=== PATIENT | male | born 1965 | race Caucasian/White ===

== ENCOUNTER 2017-01-05 22:33 | Inpatient (IN) | payer MEDICAID ==
[2017-01-05 23:34] LABS: % IMMATURE GRANULYOCYTES 2.6 % (0.0-1.1); ABSOLUTE IMMATURE GRANULOCYTES 0.28 10^3/uL (0.00-0.10); ADD DIFF? NO; ADD MORPH? NO; ADD SCAN? NO; ATYPICAL LYMPHOCYTE FLAG 10 (0-99); FRAGMENT RBC FLAG 0 (0-99); HEMATOCRIT 28.5 % (40.0-51.0); HEMOGLOBIN 9.5 g/dL (13.7-17.5); LEFT SHIFT FLG 20 (0-99); LIPEMIA HEMOLYSIS FLAG 80 (0-99); MEAN CELL HEMOGLOBIN 27.8 pg (27.9-34.1); MEAN CELL HEMOGLOBIN CONCENTR. 33.3 g/dL (32.4-36.7); MEAN CELL VOLUME 83.3 fL (81.5-99.8); MEAN PLATELET VOLUME 8.9 fL (8.7-11.7); PLATELET CLUMPS FLAG 0 (0-99); PLATELET COUNT 506 10^3/uL (150-400); RED BLOOD CELL COUNT 3.42 10^6/uL (4.40-6.38); RED CELL DISTRIBUTION WIDTH 14.6 % (11.5-15.2)
[2017-01-05 23:48] LABS: ALANINE AMINOTRANSFERASE 23 IU/L (21-72); ALBUMIN 3.4 g/dL (3.5-5.0); ALKALINE PHOSPHATASE 313 IU/L (38-126); ANION GAP 14 mEq/L (8-16); ASPARTATE AMINOTRANSFERASE 36 IU/L (17-59); BILIRUBIN,TOTAL 0.5 mg/dL (0.1-1.4); BILIRUBIN-CONJUGATED 0.5 mg/dL (0.0-0.5); CALCIUM 8.7 mg/dL (8.5-10.4); CARBON DIOXIDE 21 mEq/l (22-31); CHLORIDE 104 mEq/L (97-110); CREATININE 0.8 mg/dL (0.7-1.3); GLOMERULAR FILTRATION RATE > 60; GLUCOSE 95 mg/dL (70-100); POTASSIUM 4.1 mEq/L (3.5-5.2); SODIUM 139 mEq/L (134-144); TOTAL PROTEIN 6.4 g/dL (6.3-8.2)
[2017-01-06 01:21] LABS: COLOR YELLOW; LEUKOCYTE ESTERASE,URINE NEGATIVE (NEGATIVE); NITRITE,URINE NEGATIVE (NEGATIVE)
[2017-01-06] MEDS ORDERED: IOPAMIDOL (ISOVUE-300) 100 ML BTL ONE (01:37)
[2017-01-06 01:41] LABS: MUCUS 1+ /lpf (NONE-1+); RBC,URINE NONE SEEN /hpf (0-3); WBC,URINE 0-1 /hpf (0-3)
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
[2017-01-06] MEDS ORDERED: ONDANSETRON 4 MG/2 ML VIAL IVP ONE (02:38)
[2017-01-06] MEDS ORDERED: ONDANSETRON DISINTEGRATING 4 MG TAB PO PRN (04:33)
[2017-01-06] MEDS ORDERED: HYDROmorphONE/DILAUDID 1 MG/ML INJ IVP PRN ×2 (04:34→04:58)
[2017-01-06] MEDS: NS 1,000 ML IV SCH ×2 (05:55→14:07)
[2017-01-06] MEDS: DEXAMETHASONE 4 MG/ML VIAL IVP SCH ×4 (05:56→23:55)
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
[2017-01-06] MEDS: morphINE SR 15 MG TAB PO SCH ×2 (09:16→20:14)
[2017-01-06] MEDS: ENOXAPARIN 40 MG/0.4 ML SYR SC SCH (09:17)
[2017-01-06] MEDS: HYDROmorphONE/DILAUDID 1 MG/ML INJ IVP PRN ×2 (09:44→14:08)
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
[2017-01-06] MEDS: ONDANSETRON 4 MG/2 ML VIAL IVP PRN ×2 (11:50→16:40)
[2017-01-06] MEDS: LORazepam 0.5 MG TAB PO PRN ×2 (12:05→23:55)
[2017-01-06] MEDS ORDERED: BISACODYL 10 MG SUPP PR PRN (13:46)
[2017-01-06] MEDS ORDERED: LACTULOSE 20 GM/30 ML UDCUP PO PRN (13:46)
[2017-01-06] MEDS ORDERED: MAGNESIUM HYDROXIDE 30 ML UDCUP PO PRN (13:46)
[2017-01-06] MEDS: NICOTINE 21 MG/24 HR PATCH TD SCH (14:09)
--- NOTE | 2017-01-06 14:21 | HOSPPROG ---
Hospitalist Progress Note Assessment/Plan: Rectal and bladder tumors with extensive metastatic disease to bone, lung - query prostate primary with sclerotic bone lesions vs bladder primary. Need tissue diagnosis followed by oncology consult. -check PSA. Discussed with urology. Even if PSA elevated, he would still pursue biopsy of bone lesion rather than prostate biopsy -bone biopsy in am via IR -check PT/INR -npo at midnight -oncology consult requested, will see tomorrow Hydronephrosis - Cr normal. PVR's normal. -cont bladder scans LE weakness - MRI pending to evaluate for cord compression Acute / chronic pain secondary to tumor burden / osseous mets to spine - cont dexamethasone, IV dilaudid, add long acting oral morphine Anemia - suspect secondary to malignancy, no transfusion needs Tobacco abuse - nicoderm patch Malnutrition - dietary consult, supplements with meals Full code DVT PPLX - Lovenox Dispo - cont inpt, pt homeless, CM consult Subjective: Pt c/o pain, LE weakness, difficulty urinating and having BM's. No fever. Objective: Vital Signs Temp Pulse Resp BP Pulse Ox 36.8 C 68 20 121/75 H 96 01/06/17 11:50 01/06/17 11:50 01/06/17 11:50 01/06/17 11:50 01/06/17 11:50 01/05/17 01/06/17 01/07/17 05:59 05:59 05:59 Intake Total 525 120 Output Total 300 260 Balance 225 -140 - Physical Exam Constitutional: no apparent distress Eyes: PERRL Ears, Nose, Mouth, Throat: moist mucous membranes Cardiovascular: regular rate and rhythym Respiratory: no respiratory distress Gastrointestinal: normoactive bowel sounds, soft, non-tender abdomen Skin: warm Musculoskeletal: full muscle strength Neurologic: AAOx3 Psychiatric: interacting appropriately ICD10 Worksheet Patient Problems: Problems Problem Status Onset Abdominal pain Acute Anemia Acute Bladder cancer metastasized to bone Acute Homeless Acute Low back pain radiating to both legs Acute
[2017-01-06] MEDS: POLYETHYLENE GLYCOL 3350 17 GM PKT PO PRN (14:25)
[2017-01-06] MEDS ORDERED: PROMETHAZINE HCL 25 MG/ML INJ IVP PRN (17:07)
[2017-01-06] MEDS ORDERED: PROMETHAZINE HCL 25 MG TAB PO PRN (17:07)
--- NOTE | 2017-01-06 17:34 | CPEKG ---
Heart Rate: 135 RR Interval: 444 QRSD Interval: 78 QT Interval: 296 QTC Interval: 444 QRS [place]: 72 T Wave [place]: 10 EKG Severity - ABNORMAL ECG - EKG Impression: ATRIAL FIBRILLATION, V-RATE 103-156 EKG Impression: LEFT VENTRICULAR HYPERTROPHY Electronically Signed By: Joanne Rosales 07-Jan-2017 06:36:49
[2017-01-06] MEDS ORDERED: ASPIRIN 325 MG TAB PO ONE (17:52)
[2017-01-06] MEDS ORDERED: IOPAMIDOL (ISOVUE 370) 100 ML BTL IV ONE (17:57)
[2017-01-06] MEDS ORDERED: DILTIAZEM 25 MG/5 ML VIAL IVP ONE ×2 (18:00→19:45)
[2017-01-06] MEDS ORDERED: DILTIAZEM 125 MG in D5W 125 ML IV SCH (18:00)
[2017-01-06] MEDS ORDERED: DILTIAZEM 30 MG TAB PO SCH (18:00)
[2017-01-06] MEDS: DILTIAZEM 30 MG TAB PO SCH ×2 (18:05→23:55)
[2017-01-06 18:48] LABS: TROPONIN I < 0.012 ng/mL (0.000-0.034)
--- NOTE | 2017-01-06 19:37 | PDCONSULT ---
Remote Advisor Note: Chart reviewed and case discussed with Dr. Ugarte. Full consult to follow. Widely metastatic disease with PSA > 2000 suggests prostate cancer. Given severity of the disease recommend medical oncology consultation. If tissue diagnosis needed recommend biopsy of metastatic site. Consider radiation oncology consult for palliative XRT ? Bladder mass on CT--> outpatient cystoscopy Bilateral hydronephrosis with normal creatinine, likely due to prostate cancer. Observe for now as no signs of infection or renal insufficiency. No surgical intervention for prostate cancer or hydronephrosis indicated at this time
[2017-01-06] MEDS: SENNOSIDES/DOCUSATE SODIUM TAB PO SCH (20:24)
[2017-01-07 04:03] LABS: HEMATOCRIT 30.9 % (40.0-51.0); MEAN CELL HEMOGLOBIN 27.5 pg (27.9-34.1); MEAN CELL HEMOGLOBIN CONCENTR. 32.4 g/dL (32.4-36.7); MEAN CELL VOLUME 85.1 fL (81.5-99.8); RED BLOOD CELL COUNT 3.63 10^6/uL (4.40-6.38); RED CELL DISTRIBUTION WIDTH 14.6 % (11.5-15.2)
[2017-01-07 04:11] LABS: INR 1.28 (0.83-1.16)
[2017-01-07 04:22] LABS: ANION GAP 12 mEq/L (8-16); CALCIUM 8.7 mg/dL (8.5-10.4); CARBON DIOXIDE 24 mEq/l (22-31); CHLORIDE 104 mEq/L (97-110); CREATININE 0.9 mg/dL (0.7-1.3); GLOMERULAR FILTRATION RATE > 60; GLUCOSE 145 mg/dL (70-100); POTASSIUM 4.8 mEq/L (3.5-5.2); SODIUM 140 mEq/L (134-144)
[2017-01-07] MEDS: DEXAMETHASONE 4 MG/ML VIAL IVP SCH ×3 (06:27→17:39)
[2017-01-07] MEDS: DILTIAZEM 30 MG TAB PO SCH ×4 (06:29→18:33)
[2017-01-07] MEDS: morphINE SR 15 MG TAB PO SCH ×2 (08:44→20:27)
[2017-01-07] MEDS: SENNOSIDES/DOCUSATE SODIUM TAB PO SCH ×2 (08:44→20:27)
[2017-01-07] MEDS: NICOTINE 21 MG/24 HR PATCH TD SCH (08:44)
--- NOTE | 2017-01-07 08:48 | HOSPPROG ---
Hospitalist Progress Note Assessment/Plan: Presumed metastatic prostate cancer - PSA >2000 with sclerotic bone lesions, lung mets and bladder tumor. Pt adamantly refuses bone or other tissue biopsy. -oncology consult appreciated, will start anti-androgen therapy -appreciate urology input, outpt cystoscopy recommended Hydronephrosis - Cr normal. PVR's normal. -cont bladder scans, monitor Cr A fib with RVR - New onset, converted to sinus after oral dilt. Chads-vasc 0. TSH nl. Trops neg x2. Echo pending. -cont po dilt, daily ASA LE weakness - MRI pending to evaluate for cord compression. May be a candidate for palliative radiation if cord compression seen. Acute / chronic pain secondary to tumor burden / osseous mets to spine - cont dexamethasone, IV dilaudid, and long acting oral morphine Anemia - suspect secondary to malignancy, no transfusion needs Tobacco abuse - nicoderm patch Malnutrition - dietary consult, supplements with meals Full code DVT PPLX - Lovenox Dispo - cont inpt, pt homeless, CM consult. Pt wishes to return to [place] where he has family. Subjective: Pt feels better. Had a good night sleep. Pain improved. No CP, SOB or palpitations. Converted to NSR overnight. Objective: Vital Signs Temp Pulse Resp BP Pulse Ox 36.7 C 70 20 124/83 H 97 01/07/17 08:00 01/07/17 08:00 01/07/17 08:00 01/07/17 08:00 01/07/17 08:00 Laboratory Results 01/07/17 03:41 01/07/17 03:41 01/06/17 01/07/17 01/08/17 05:59 05:59 05:59 Intake Total 525 2633 250 Output Total 300 1035 525 Balance 225 1598 -275 PT 16.0 SEC (12.0-15.0) H 01/07/17 03:41 INR 1.28 (0.83-1.16) H 01/07/17 03:41 - Physical Exam Constitutional: cachectic Eyes: PERRL Ears, Nose, Mouth, Throat: moist mucous membranes Cardiovascular: regular rate and rhythym Respiratory: no respiratory distress, clear to auscultation Gastrointestinal: normoactive bowel sounds, soft, non-tender abdomen Skin: warm Musculoskeletal: other (LE weakness b/l) Neurologic: AAOx3 Psychiatric: interacting appropriately ICD10 Worksheet Patient Problems: Problems Problem Status Onset Abdominal pain Acute Anemia Acute Bladder cancer metastasized to bone Acute Homeless Acute Low back pain radiating to both legs Acute Prostate cancer metastatic to bone Acute Prostate cancer metastatic to lung Acute
[2017-01-07] MEDS: ENOXAPARIN 40 MG/0.4 ML SYR SC SCH (09:07)
--- NOTE | 2017-01-07 09:27 | CPEKG ---
Heart Rate: 63 RR Interval: 952 P-R Interval: 156 QRSD Interval: 92 QT Interval: 404 QTC Interval: 414 P [place]: 50 QRS [place]: 77 T Wave [place]: 40 EKG Severity - ABNORMAL ECG - EKG Impression: SINUS RHYTHM EKG Impression: LEFT VENTRICULAR HYPERTROPHY Electronically Signed By: Joanne Rosales 07-Jan-2017 16:29:17
--- NOTE | 2017-01-07 09:44 | ECHO ---
[id number] + + [address] : : [place] [address] : : [phone] + + Adult Echocardiographic Report + --+ :Name: GERARD BAUTISTA NStudy Date: 01/07/2017 08:02 AM BP: 149/92 mmHg : : Hospital Admission Number: [id number] Location: 2 08: :: 1965 Gender: Male Height: 73 in : :Age: 51 yrs Race: WH Weight: 138 lb : :Reason For Study: new onset afib : : BSA: 1.8 meters2 : :History: new onset afib : + --+ MMode/2D Measurements & Calculations IVSd: 0.91 cm RVDd: 3.7 cm FS: 35.2 % Ao root diam: LVPWd: 0.86 cm LVIDd: 4.5 cm EDV(Teich): 2.8 cm LVIDs: 2.9 cm 93.4 ml ESV(Teich): 33.0 ml EF(Teich): 64.7 % LVLd ap4: 9.9 cm SV(MOD-sp4): EDV(MOD-sp4): 115.0 ml 165.0 ml LVLs ap4: 7.6 cm ESV(MOD-sp4): 50.0 ml EF(MOD-sp4): 69.7 % Normal Measurement Values: + + :LVIDd (3.5-5.7cm) IVSd (0.6-1.1cm) LVPWd (0.6-1.1cm) Aortic Root (2.0-3.7cm)Left Atrium (1.5-4.0cm): :LV Vol(d) (76-115ml) LV Vol(s) (29-48ml) Ejec Fraction (50-65%)PV Idris (0.6- 1.2m/s) TV Idris (0.4-1.0m/s) : :MV E Idris (0.8-1.0m/s)MV A Idris (0.3-1.0m/s)LVOT Idris (0.7-1.2m/s) Asc Ao Idris ( 0.9-1.8m/s) : + + Doppler Measurements & Calculations MV E max idris: Ao V2 max: LV V1 max: PA V2 max: 90.8 cm/sec 136.7 cm/sec 129.3 cm/sec 97.7 cm/sec MV A max idris: Ao max PG: LV V1 max PG: PA max P.6 cm/sec 7.5 mmHg 6.7 mmHg 3.8 mmHg MV E/A: 1.4 MV dec time: 0.20 sec TR max idris: 256.0 cm/sec TR max P.2 mmHg RAP systole: 5.0 mmHg RVSP(TR): 31.2 mmHg Left Ventricle The left ventricle is normal in size and function. There is normal left ventricular wall thickness. Ejection Fraction = 65%. No regional wall motion abnormalities noted. Right Ventricle The right ventricle is normal in size and function. Atria The left atrial size is normal. Right atrial size is normal. Echo density noted in the RA may be prominient Eustachian valve. Mitral Valve The mitral valve is normal in structure and function. There is no mitral valve stenosis. There is trace to mild mitral regurgitation. Tricuspid Valve The tricuspid valve is normal in structure and function. There is no tricuspid stenosis. There is mild tricuspid regurgitation. Right ventricular systolic pressure is 31mmHg. Aortic Valve The aortic valve is trileaflet. There is no aortic stenosis. There is no aortic insufficiency. Pulmonic Valve The pulmonic valve is not well visualized. Great Vessels The aortic root is normal size. Pericardium/Pleural trivial pericardial effusion. Conclusion A two-dimensional transthoracic echocardiogram with M-mode and Doppler was performed. The left ventricle is normal in size and function. Ejection Fraction = 65%. Echo density noted in the RA may be prominient Eustachian valve. There is trace to mild mitral regurgitation. There is mild tricuspid regurgitation. Right ventricular systolic pressure is 31mmHg. trivial pericardial effusion. Final Reading Physician: Jeanette Stone signed on 01/07/2017 09:43 AM Ordering Physician: Aristeo Costa Performed By: Leticia Alvarez
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
[2017-01-07] MEDS: ASPIRIN 81 MG CHEWABLE TAB PO SCH (12:55)
[2017-01-07] MEDS: POLYETHYLENE GLYCOL 3350 17 GM PKT PO PRN (12:55)
[2017-01-07] MEDS: BICALUTAMIDE 50 MG TAB PO SCH (12:56)
[2017-01-07] MEDS: LORazepam 0.5 MG TAB PO PRN ×2 (12:56→13:11)
--- NOTE | 2017-01-07 13:36 | SOAPPROG ---
SOAP Progress Note Assessment/Plan: Assessment: Prostate cancer metastatic to bone Acute reviewed hx and skin care consultant note from heme onc. Prostate cancer metastatic to lung Acute Plan: pt declines bx, LHRH is appropriate and Firmagon would be best initial month rx then convert to LHRH. Chemo in metastatic naive pt is recommended but pt seems to have declined that recommendation. 01/07/17 13:34 Subjective: reviewed notes and follow up with if pt remains in [place] area and desires our input Objective: Vital Signs Temp Pulse Resp BP Pulse Ox 36.6 C 68 16 140/91 H 96 01/07/17 12:00 01/07/17 12:00 01/07/17 12:00 01/07/17 12:00 01/07/17 12:00 Laboratory Results 01/07/17 03:41 01/07/17 03:41 01/06/17 01/07/17 01/08/17 05:59 05:59 05:59 Intake Total 525 2633 800 Output Total 300 1035 750 Balance 225 1598 50 PT 16.0 SEC (12.0-15.0) H 01/07/17 03:41 INR 1.28 (0.83-1.16) H 01/07/17 03:41 Physical Exam - Physical Exam General Appearance: other (reviewed skin care consultant note from heme onc and no futher assessment needed at this time by gu) ICD10 Worksheet Patient Problems: Problems Problem Status Onset Abdominal pain Acute Anemia Acute Bladder cancer metastasized to bone Acute Homeless Acute Low back pain radiating to both legs Acute Prostate cancer metastatic to bone Acute Prostate cancer metastatic to lung Acute - ICD10 Problem Qualifiers (1) Prostate cancer metastatic to bone (2) Prostate cancer metastatic to lung
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
[2017-01-07] MEDS: HYDROmorphONE/DILAUDID 1 MG/ML INJ IVP PRN (15:37)
[2017-01-07] MEDS ORDERED: GADOBUTROL 10 ML VIAL IVP ONE (15:48)
--- NOTE | 2017-01-07 16:53 | ASMTCMCOM ---
CM Note CM Note Notes: Pt is homeless and admitted for low back pain and found to have a new dx of likely metastatic prostate cancer. Plan is for to have radiation inpt and at DC he will go to live with family in [place]. His mother Eleanor called today to discuss situation but C/M unable to return call ([phone]). Met with pt for support and resources. Pt is happy with the care he is receiving here and is not sure what he will do for treatment past radiation. He was given clothes and a request for [employer] funds was made for him. C/M will continue to follow. Date Signed: 01/07/2017 04:52 PM Electronically Signed By:Roseanna Dior LCSW
[2017-01-07] MEDS: ONDANSETRON 4 MG/2 ML VIAL IVP PRN (18:01)
[2017-01-08] MEDS: DEXAMETHASONE 4 MG/ML VIAL IVP SCH ×4 (00:26→18:06)
[2017-01-08] MEDS: DILTIAZEM 30 MG TAB PO SCH ×4 (00:26→18:06)
[2017-01-08] MEDS: SENNOSIDES/DOCUSATE SODIUM TAB PO SCH ×2 (08:18→21:02)
[2017-01-08] MEDS: BICALUTAMIDE 50 MG TAB PO SCH (08:19)
[2017-01-08] MEDS: morphINE SR 15 MG TAB PO SCH ×2 (08:20→21:02)
[2017-01-08] MEDS: ASPIRIN 81 MG CHEWABLE TAB PO SCH (08:20)
[2017-01-08] MEDS: ENOXAPARIN 40 MG/0.4 ML SYR SC SCH (08:21)
--- NOTE | 2017-01-08 09:36 | HOSPPROG ---
Hospitalist Progress Note Assessment/Plan: 51 yo homeless male presented with back pain, found to have metastatic cancer Presumed metastatic prostate cancer - PSA >2000 with sclerotic bone lesions, lung mets and bladder tumor. Pt adamantly refuses bone or other tissue biopsy. -oncology consult appreciated, started anti-androgen therapy, pt refusing chemo -lupron to start in 2 weeks -plans to return to [place] for ongoing tx, where he has family -appreciate urology input, outpt cystoscopy recommended A fib with RVR - Brief, new onset, converted to sinus after oral dilt. Chads- vasc 0. TSH nl. Trops neg x2. Echo pending. -cont po dilt, change to long acting -daily ASA -monitor on tele (personally reviewed and interpreted, NSR) Hydronephrosis - Cr normal. PVR's normal. -cont bladder scans, monitor Cr Constipation - rectal tumor causing partial obstruction -miralax LE weakness - MRI T and L spine, no cord compression, extensive metastatic dz noted with mild canal stenosis -no radiation indicated Acute / chronic pain secondary to tumor burden / osseous mets to spine -cont dexamethasone, long acting oral morphine, prn IV dilaudid Anemia - suspect secondary to malignancy, no transfusion needs Tobacco abuse - nicoderm patch Malnutrition - dietary consult, supplements with meals Full code DVT PPLX - Lovenox Dispo - cont inpt, pt homeless. Pt wishes to return to [place] where he has family. They will pick him up on . PT/OT. Subjective: Pt reports pain is controlled. No BM. Urinating ok. No fevers. Ambulating. Objective: Vital Signs Temp Pulse Resp BP Pulse Ox 36.6 C 67 15 122/72 H 95 01/08/17 07:56 01/08/17 07:56 01/08/17 07:56 01/08/17 07:56 01/08/17 07:56 Laboratory Results 01/07/17 03:41 01/07/17 03:41 01/07/17 01/08/17 01/09/17 05:59 05:59 05:59 Intake Total 2633 1450 Output Total 1035 2850 150 Balance 1598 -1400 -150 PT 16.0 SEC (12.0-15.0) H 01/07/17 03:41 INR 1.28 (0.83-1.16) H 01/07/17 03:41 - Physical Exam Constitutional: chronically ill appearing, cachectic Eyes: PERRL Ears, Nose, Mouth, Throat: moist mucous membranes Cardiovascular: regular rate and rhythym Respiratory: no respiratory distress, clear to auscultation Gastrointestinal: normoactive bowel sounds, soft, non-tender abdomen Skin: warm Musculoskeletal: full muscle strength Neurologic: AAOx3 Psychiatric: interacting appropriately ICD10 Worksheet Patient Problems: Problems Problem Status Onset Abdominal pain Acute Anemia Acute Bladder cancer metastasized to bone Acute Homeless Acute Low back pain radiating to both legs Acute Prostate cancer metastatic to bone Acute Prostate cancer metastatic to lung Acute
[2017-01-08] MEDS: NICOTINE 21 MG/24 HR PATCH TD SCH (10:05)
--- NOTE | 2017-01-08 14:20 | SOAPPROG ---
SOAP Progress Note Assessment/Plan: Assessment: 1) Metastatic prostate cancer 2) Diffuse bony metastatic disease 3) Rectal invasion secondary to #1 4) Bladder invasion secondary to #1 5) Diffuse bone pain secondary to #2 6) Thrombocytosis secondary to #1 7) Cancer related anemia 8) Pulmonary metastases. Plan: Patient's MRI of the T/L spine confirms multiple metastatic lesions, but no evidence of spinal cord compression. He therefore has no immediate need for XRT , and given the diffuse nature of his bone pain, I do not think that XRT would be beneficial at this time. He continues to decline biopsy. He was started on bicalutamide yesterday, and will be due to receive first Lupron injection in 2 weeks. He plans to return to [facility] for treatment in order to live with his family. They are coming to pick him up and take him back to [place] on . Case management is attempting to get him a medical Oncology appointment in [facility]. I will add Miarlax to his med list to help avoid narcotic induced constipation, especially in light of his partial rectal obstruction from tumor. This should improve with treatment. I did discuss the advantage of early chemotherapy in this disease, but for now, he is not interested in this. His pain is currently well controlled with narcotic analgesia. His questions were answered. Plan d/w nursing. Subjective: Pain well controlled. Having constipation. Objective: Vital Signs Temp Pulse Resp BP Pulse Ox 36.5 C 69 26 H 148/99 H 97 01/08/17 12:00 01/08/17 12:00 01/08/17 12:00 01/08/17 12:00 01/08/17 12:00 Laboratory Results 01/07/17 03:41 01/07/17 03:41 01/07/17 01/08/17 01/09/17 05:59 05:59 05:59 Intake Total 2633 1450 Output Total 1035 2850 150 Balance 1598 -1400 -150 PT 16.0 SEC (12.0-15.0) H 01/07/17 03:41 INR 1.28 (0.83-1.16) H 01/07/17 03:41 - Time Spent With Patient Time Spent With Patient: 25 minutes Physical Exam - Physical Exam General Appearance: alert, no apparent distress EENT: PERRL/EOMI Abdomen: non-tender, soft Neuro/Psych: no motor/sensory deficits, alert, normal mood/affect ICD10 Worksheet Patient Problems: Problems Problem Status Onset Abdominal pain Acute Anemia Acute Bladder cancer metastasized to bone Acute Homeless Acute Low back pain radiating to both legs Acute Prostate cancer metastatic to bone Acute Prostate cancer metastatic to lung Acute
[2017-01-08] MEDS: POLYETHYLENE GLYCOL 3350 17 GM PKT PO SCH (14:56)
--- NOTE | 2017-01-08 15:52 | ASMTCMCOM ---
CM Note CM Note Notes: 01/08/2017 Case Management Note: Met w/pt. Patient reports that Mother Eleanor, and youngest son Ramsey are driving up from [place] to pick up driver patient. They are leaving [place] tomorrow and plan to arrive late tomorrow night, approximately [address]. Pt reports plan to start radiation/oncology treatment at [facility] in [facility]. [phone] (docs) Spoke w/ Eleanor, she plans for pt to live with her through cancer treatments. Other family members in [facility] area for support. Eleanor inquired about SNF rehab in [place], case management explained that pt would have to arrange if needed in [place] but currently pt would not qualify for SNF levels of care. Spoke w/Ramsey who confirmed transportation plan. Mother Eleanor [phone] Son Matthieu [phone] Case Management d/c poc: To [place] with family for cancer treatments whem medically stable. 01/07/2017 Case Management Note: Pt is homeless and admitted for low back pain and found to have a new dx of likely metastatic prostate cancer. Plan is for to have radiation inpt and at DC he will go to live with family in [place]. His mother Eleanor called today to discuss situation but C/M unable to return call ([phone]). Met with pt for support and resources. Pt is happy with the care he is receiving here and is not sure what he will do for treatment past radiation. He was given clothes and a request for [employer] funds was made for him. C/M will continue to follow. Date Signed: 01/08/2017 03:51 PM Electronically Signed By:Denita Leger RN
[2017-01-08] MEDS: PANTOPRAZOLE SODIUM 40 MG TAB PO SCH (16:06)
[2017-01-08] MEDS: ONDANSETRON 4 MG/2 ML VIAL IVP PRN (18:08)
[2017-01-09] MEDS: DILTIAZEM 30 MG TAB PO SCH (00:35)
[2017-01-09] MEDS: DEXAMETHASONE 4 MG TAB PO SCH ×2 (09:19→20:24)
[2017-01-09] MEDS: SENNOSIDES/DOCUSATE SODIUM TAB PO SCH ×2 (09:19→20:24)
[2017-01-09] MEDS: morphINE SR 15 MG TAB PO SCH ×2 (09:19→20:24)
[2017-01-09] MEDS: PANTOPRAZOLE SODIUM 40 MG TAB PO SCH (09:19)
[2017-01-09] MEDS: ASPIRIN 81 MG CHEWABLE TAB PO SCH (09:19)
[2017-01-09] MEDS: ENOXAPARIN 40 MG/0.4 ML SYR SC SCH (09:20)
[2017-01-09] MEDS: BICALUTAMIDE 50 MG TAB PO SCH (09:20)
[2017-01-09] MEDS: POLYETHYLENE GLYCOL 3350 17 GM PKT PO SCH (09:20)
[2017-01-09] MEDS: NICOTINE 21 MG/24 HR PATCH TD SCH (09:20)
[2017-01-09] MEDS: DILTIAZEM CD 120 MG CAP PO SCH (10:31)
--- NOTE | 2017-01-09 14:39 | SOAPPROG ---
SOAP Progress Note Assessment/Plan: Assessment: 1) Metastatic prostate cancer 2) Diffuse bony metastatic disease 3) Rectal invasion secondary to #1 4) Bladder invasion secondary to #1 5) Diffuse bone pain secondary to #2 6) Thrombocytosis secondary to #1 7) Cancer related anemia 8) Pulmonary metastases. Plan: Patient's MRI of the T/L spine confirms multiple metastatic lesions, but no evidence of spinal cord compression. He therefore has no immediate need for XRT , and given the diffuse nature of his bone pain, I do not think that XRT would be beneficial at this time. He has declined a biopsy. He was started on bicalutamide on 01/07, and will be due to receive first Lupron injection in about 2 weeks. He plans to return to [facility] for treatment in order to live with his family. They are coming to pick him up and take him back to [place] on . Case management is attempting to get him a medical Oncology appointment in [facility]. I was able to speak with Dr. Marisol Lopez an Oncologist in the [place], [place] group. I reviewed Galdino's clinical case with her, and his treatment to date. I gave her his demographic data and contact info. She indicated that they would be happy to see him next week. I gave her my personal cell phone number to contact with any questions. Galdino will also be given the contact information for the [place], [place] practice, and is asked to call them to make an appointment next . He agrees to do so. I will added Miralax to his med list to help avoid narcotic induced constipation , especially in light of his partial rectal obstruction from tumor. This should improve with treatment. I did discuss the advantage of early chemotherapy in this disease, and he will discuss this again with his Oncologist in [place]. His pain is currently well controlled with narcotic analgesia. He will likely be d/c either this evening or tomorrow morning. He should be discharged on Bicalutamide 50 mg daily with a 30 day supply. He is instructed to continue taking this until he is sen by Oncology in [place]. Given that he is not staying in [place], his further care will need to be deferred the Oncology group in [place]. He understands the importance of timely follow up in [place]. His questions were answered. Plan d/w nursing. 01/09/17 14:25 Subjective: Pain under good control. Patient's family is driving up from [place], and will be here this evening. Objective: Vital Signs Temp Pulse Resp BP Pulse Ox 36.7 C 66 17 126/77 H 97 01/09/17 11:46 01/09/17 11:46 01/09/17 11:46 01/09/17 11:46 01/09/17 11:46 Laboratory Results 01/07/17 03:41 01/07/17 03:41 01/08/17 01/09/17 01/10/17 05:59 05:59 05:59 Intake Total 1450 500 Output Total 2850 990 Balance -1400 -490 PT 16.0 SEC (12.0-15.0) H 01/07/17 03:41 INR 1.28 (0.83-1.16) H 01/07/17 03:41 - Time Spent With Patient Time Spent With Patient: 30 minutes Physical Exam - Physical Exam General Appearance: alert, no apparent distress Neuro/Psych: alert, normal mood/affect ICD10 Worksheet Patient Problems: Problems Problem Status Onset Abdominal pain Acute Anemia Acute Bladder cancer metastasized to bone Acute Homeless Acute Low back pain radiating to both legs Acute Prostate cancer metastatic to bone Acute Prostate cancer metastatic to lung Acute
--- NOTE | 2017-01-09 14:42 | ASMTCMCOM ---
CM Note CM Note Notes: CM spoke w/ Sonam at [facility] (P#: [phone], F#: [phone]) in [place], [place] to make a referral for oncology treatment. CM spoke w/ Taya at [facility] (P#: [phone], F#: [phone]) to make a referral for radiation. CM faxed referral to both facilities. Pt is scheduled to discharge tomorrow. CM left mom a msg and requested a call back. CM to follow. Date Signed: 01/09/2017 02:42 PM Electronically Signed By:ASHLEY Sagastume
--- NOTE | 2017-01-09 15:32 | HOSPPROG ---
Hospitalist Progress Note Assessment/Plan: 51 yo homeless male presented with back pain, found to have metastatic cancer # Presumed metastatic prostate cancer - PSA >2000 with sclerotic bone lesions, lung mets and bladder tumor. Pt adamantly refuses bone or other tissue biopsy. -oncology consult appreciated, started anti-androgen therapy, pt refusing chemo -lupron to start in 2 weeks -plans to return to [place] for ongoing tx, where he has family -appreciate urology input, outpt cystoscopy recommended # A fib with RVR - Brief, new onset, converted to sinus after oral dilt. Chads- vasc 0. TSH nl. Trops neg x2. Echo (reviewed) normal LV and valves tele (personally reviewed and interpreted) sinus in 70's - oxygen saturations 97% on RA -cont po dilt, change to long acting -daily ASA -monitor on #Hydronephrosis - Cr normal. PVR's normal. -cont bladder scans, monitor Cr #Constipation - rectal tumor causing partial obstruction -miralax #LE weakness - MRI T and L spine, no cord compression, extensive metastatic dz noted with mild canal stenosis -no radiation indicated #Acute / chronic pain secondary to tumor burden / osseous mets to spine -cont dexamethasone, long acting oral morphine, prn IV dilaudid #Anemia - suspect secondary to malignancy, no transfusion needs #Tobacco abuse - nicoderm patch #Malnutrition - dietary consult, supplements with meals Full code DVT PPLX - Lovenox Dispo > 2 MN as pt acutely quite ill requiring medication titration and monitoring prior to dc home to [place] Subjective: pain controlled Objective: Vital Signs Temp Pulse Resp BP Pulse Ox 36.7 C 66 17 126/77 H 97 01/09/17 11:46 01/09/17 11:46 01/09/17 11:46 01/09/17 11:46 01/09/17 11:46 Laboratory Results 01/07/17 03:41 01/07/17 03:41 01/08/17 01/09/17 01/10/17 05:59 05:59 05:59 Intake Total 1450 500 Output Total 2850 990 Balance -1400 -490 PT 16.0 SEC (12.0-15.0) H 01/07/17 03:41 INR 1.28 (0.83-1.16) H 01/07/17 03:41 - Physical Exam Constitutional: chronically ill appearing, cachectic Eyes: anicteric sclera Ears, Nose, Mouth, Throat: moist mucous membranes Cardiovascular: regular rate and rhythym Respiratory: no respiratory distress Gastrointestinal: normoactive bowel sounds Genitourinary: no bladder fullness Skin: warm Musculoskeletal: No asymmetric calves Neurologic: AAOx3 Psychiatric: interacting appropriately Lymph, Heme, Immunologic: no cervical LAD ICD10 Worksheet Patient Problems: Problems Problem Status Onset Abdominal pain Acute Anemia Acute Bladder cancer metastasized to bone Acute Homeless Acute Low back pain radiating to both legs Acute Prostate cancer metastatic to bone Acute Prostate cancer metastatic to lung Acute
[2017-01-10 04:55] VITALS: BP 116/90; PULSE 71; TEMP 98.1; O2SAT 97
[2017-01-10] MEDS: ASPIRIN 81 MG CHEWABLE TAB PO SCH (08:59)
[2017-01-10] MEDS: SENNOSIDES/DOCUSATE SODIUM TAB PO SCH (08:59)
[2017-01-10] MEDS: DILTIAZEM CD 120 MG CAP PO SCH (08:59)
[2017-01-10] MEDS: DEXAMETHASONE 4 MG TAB PO SCH (09:00)
[2017-01-10] MEDS: PANTOPRAZOLE SODIUM 40 MG TAB PO SCH (09:00)
[2017-01-10] MEDS: BICALUTAMIDE 50 MG TAB PO SCH (09:00)
[2017-01-10] MEDS: morphINE SR 15 MG TAB PO SCH (09:00)
[2017-01-10] MEDS: POLYETHYLENE GLYCOL 3350 17 GM PKT PO SCH (09:03)
[2017-01-10] MEDS: ENOXAPARIN 40 MG/0.4 ML SYR SC SCH (09:03)
[2017-01-10] MEDS: NICOTINE 21 MG/24 HR PATCH TD SCH (09:03)
[2017-01-10 10:36] VITALS: RESP 15
--- NOTE | 2017-01-10 11:22 | ASMTCMCOM ---
CM Note CM Note Notes: Pt is being discharged today. CM met w/ pt, mom, and son for dispo planning. CM faxed referral to [facility]. CM informed pt and family that a referral has been made to both [facility] and [facility]. CM informed pt and family to follow up w/ both facilities and go with whichever one they preferred. Pt is returning to [place], [place] today. CM available for changes. Date Signed: 01/10/2017 11:21 AM Electronically Signed By:ASHLEY Sagastume
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
--- NOTE | 2017-01-10 21:02 | GDS ---
[f rep st] DISCHARGE SUMMARY DISCHARGE DIAGNOSES: Include. 1. Presumed widely metastatic prostate cancer. 2. Atrial fibrillation with rapid ventricular response. 3. Hydronephrosis. 4. Constipation. 5. Acute bone pain secondary to osseous metastases. 6. Anemia presumed secondary to malignancy. HISTORY OF PRESENT ILLNESS: A 51-year-old male, who is homeless, presenting with complaints of back pain. For details of patient's initial presentation, please see the history and physical dated 01/06. CONSULTATIVE SERVICES: Include Oncology. PROCEDURES: On 01/07/2017, patient had a thoracic MRI that shows diffuse osseous metastases involvin g the entire spine without acute compression fractures. HOSPITAL COURSE: By issue. 1. Presumed widely metastatic prostate cancer. The patient had metastases localized throughout his bones, lung and bladder. PSA is greater than 2000 at the time of this workup presumed secondary to p rostate cancer. The patient was seen by Oncology, started on antiandrogen therapy and will initiate Lupron in the outpatient setting. He is being discharged to follow with Oncology in [place] which is c loser to his family. 2. Atrial fibrillation with rapid ventricular response. The patient was started on diltiazem drip a nd had titration of his medication. He is discharged on a daily aspirin and oral diltiazem. Rates w ere controlled in the day of disposition. 3. Hydronephrosis. Patient's creatinine remained normal. PVRs additionally remained normal. The p atient was discharged with encouragement for good fluid intake and ongoing monitoring by his [facility] care team. 4. Acute osseous bone pain. Patient was initiated on both long and short-acting narcotics. Again t his pain regimen will be handed off to the receiving oncologic team in [place], to continue and titrate as needed as he progresses through his care. MEDICATIONS AT THE TIME OF TRANSFER: Please reference med rec printed on 01/10/2017. PENDING STUDIES: At the time of this dictation are none. FOLLOWUP APPOINTMENTS: Include to be established with oncologic team in [place]. TIME SPENT: I spent greater than 30 minutes in the planning and coordination of this discharge. /[id number]/MODL
--- NOTE | 2017-01-14 16:58 | PQFORM ---
PHYSICIAN QUERY FORM Needs Your Response This query form is being sent to you to assure this patient record is coded properly. Please respond to the question below: WELDING EQUIPMENT REPAIRER SUPERVISOR QUESTION: Dear Dr. Laguerre, In reviewing this patients medical record it was noted the patient had the diagnosis of 'malnutrition.' Patient presented with increased weight loss and decreased appetite. H&P states 'Protein caloric malnutrition secondary to malignancy,' Hospitalist progress notes dated 01/06-01/09 indicated patient has malnutrition, had dietary consult and treated with supplements with meals. After study, should the diagnosis of Malnutrition be included in the discharge summary? ___x__ Yes No Other more appropriate diagnosis Unable to determine Thank you JEIMY King [facility]/Coding Dept. [phone] INSTRUCTIONS FOR RESPONSE: Answer question by clicking on the "Edit Document" button. Move cursor to area below the stars. When complete, hit "Save." Click on the "Sign" button, then click "Sign" again. Type in your PIN and hit "Enter." MTDD
== END 2017-01-10 11:24 | disposition home or self-care (01) | DRG 723 ==
LOC: CED 22:33 → CEDHOLD 01-06 02:44 → F1N 01-06 03:36 → F2W 01-06 18:54
PROVIDERS: ADMIT Internal Medicine; ATTEND Internal Medicine
DX: C61 Malignant neoplasm of prostate (principal); E46 Unspecified protein-calorie malnutrition; N13.30 Unspecified hydronephrosis; C79.51 Secondary malignant neoplasm of bone; C78.00 Secondary malignant neoplasm of unspecified lung; C79.11 Secondary malignant neoplasm of bladder; I48.91 Unspecified atrial fibrillation; K59.00 Constipation, unspecified; G89.3 Neoplasm related pain (acute) (chronic); D64.81 Anemia due to antineoplastic chemotherapy; Z72.0 Tobacco use; Z59.0 Homelessness
CPT/HCPCS: 71020-PO; 72100-PO; 72170-PO; 74177-PO; 80048-PO; 80076-PO; 81003-PO; 81015-PO; 82550-PO; 83690-PO; 83735-PO; 85025-PO; 96374; 97161-GP; 97165-GO; A9585; G0103; G8987-GO-CI; G8988-GO-CI; G8989-GO-CI; J1100; J1170; J1650; J2405; J2550; Q9967

== ENCOUNTER 2017-03-12 22:29 | Inpatient (IN) | payer MEDICAID ==
[2017-03-13] MEDS ORDERED: ONDANSETRON DISINTEGRATING 4 MG TAB PO PRN (01:02)
[2017-03-13] MEDS ORDERED: ONDANSETRON 4 MG/2 ML VIAL IVP PRN (01:02)
[2017-03-13] MEDS: oxyCODONE IR 5 MG TAB PO PRN ×4 (01:27→14:09)
--- NOTE | 2017-03-13 02:29 | PDGENHP ---
History and Physical - Chief Complaint Difficulty urinating - History of Present Illness 51 yo M w/ presumed metastatic prostate cancer and AF presented to [facility] with difficulty urinating. The patient was admitted here in December for back pain and was diagnosed at that time with likely metastatic prostate cancer. He was started on bicalutamide and discharged to establish care in [place] per patient wishes. However, once in [place] he had a difficult time finding affordable care so he drove back here to seek help. He drove from [place] today straight to the ED. At the time of my evaluation patient is complaining of difficulty urinating more than small volumes per void and significant edema involving scrotum and legs. History Information - Allergies/Home Medication List Allergies/Adverse Reactions: acetaminophen [From Tylenol] Allergy (Verified 01/05/17 22:46) Home Medications: Ibuprofen [Motrin (*)] 800 mg PO QID PRN 01/05/17 [Last Taken Unknown] I have personally reviewed and updated: family history, medical history - Past Medical History atrial fibrillation, cancer (Presumed prostate CA) - Family History Positive for: cancer - Social History Smoking Status: Current every day smoker Review of Systems Review of Systems: ROS: 10pt was reviewed & negative except for what was stated in HPI & below Physical Exam Physical Exam: Temp Pulse Resp BP Pulse Ox 36.7 C 86 19 151/95 H 98 03/13/17 00:38 03/13/17 00:38 03/13/17 00:38 03/13/17 00:38 03/13/17 00:38 Constitutional: no apparent distress, not in pain Eyes: PERRL, EOMI Ears, Nose, Mouth, Throat: moist mucous membranes, no oral mucosal ulcers Cardiovascular: regular rate and rhythym, no murmur, rub, or gallop, edema (3+ b /l ANDERS) Respiratory: no respiratory distress, no rales or rhonchi Gastrointestinal: normoactive bowel sounds, soft, non-tender abdomen Skin: warm, other (Scrotal edema noted) Neurologic: AAOx3, CN II-XII Intact Psychiatric: interacting appropriately, not anxious Lab Data & Imaging Review Lab results from [facility] notable for: Bun/Cr 28/0.9, WBC 13.4, H/H 12/34, Albumin 3.9 Imaging Review: CT A/P from [facility] reviewed: Irregular, enlarged prostate with posterior bladder wall mass contiguous w/ prostate gland. Severe bilateral hydronephrosis. Findings suspicious for metastatic prostate cancer. Assessment & Plan Assessment: 51 yo M w/ presumed widely metastatic prostate CA presents w/ difficulty urinating and to plan for future management. Plan: 1. Presumed metastatic prostate CA - Presumed on the basis of radiographic appearance and elevated PSA (1999). During last admission in December he was started on bicalutamide and discharged for further care in [place] per patient wishes. However, he was unable to establish care and has not received additional therapy. He also does not think he has been taking bicalutamide regularly. He is interested in pursuing any therapies available to him for prolonging his life. - Oncology consult - On morphine SA/IR as outpatient, needs meds reconciled but reasonable to continue 2. Severe bilateral hydronephrosis, difficulty urinating - As a result of above. Renal function remains normal although I suspect chronic retention is leading to significant edema notable on exam. - Will have RN place Mcfarlane catheter to bypass obstruction for now - Consider lasix if edema does not begin to resolve with catheter alone 3. Bilateral lower extremity edema - I suspect this is related to urinary obstruction. Albumin at OSH 3.9 and lower extremity U/S without evidence of DVT. - Monitor 4. Atrial fibrillation - Discharged on diltiazem after last admission, which he claims to be taking. In NSR on admission. Diet - Regular Code - Full Ppx - LMWH Dispo - Admit to observation status
[2017-03-13 04:36] LABS: ABSOLUTE NRBC COUNT 0.04 10^3/uL (0-0.01); ADD DIFF? YES; ADD MORPH? YES; ADD SCAN? NO; ATYPICAL LYMPHOCYTE FLAG 0 (0-99); FRAGMENT RBC FLAG 20 (0-99); HEMATOCRIT 33.4 % (40.0-51.0); HEMOGLOBIN 11.4 g/dL (13.7-17.5); LEFT SHIFT FLG 20 (0-99); LIPEMIA HEMOLYSIS FLAG 90 (0-99); MEAN CELL HEMOGLOBIN 31.8 pg (27.9-34.1); MEAN CELL HEMOGLOBIN CONCENTR. 34.1 g/dL (32.4-36.7); NRBC-AUTO% 0.3 % (0.0-0.2); PLATELET CLUMPS FLAG 0 (0-99); PLATELET COUNT 263 10^3/uL (150-400); RED BLOOD CELL COUNT 3.59 10^6/uL (4.40-6.38)
[2017-03-13 05:02] LABS: ANION GAP 6 mEq/L (8-16); CALCIUM 8.3 mg/dL (8.5-10.4); CARBON DIOXIDE 30 mEq/l (22-31); CHLORIDE 102 mEq/L (97-110); CREATININE 0.9 mg/dL (0.7-1.3); GLOMERULAR FILTRATION RATE > 60; GLUCOSE 93 mg/dL (70-100); SODIUM 138 mEq/L (134-144)
[2017-03-13 05:09] LABS: MICROCYTES 1+; PLATELET ESTIMATE ADEQUATE (ADEQ)
[2017-03-13] MEDS: ENOXAPARIN 40 MG/0.4 ML SYR SC SCH (09:38)
[2017-03-13] MEDS ORDERED: LORazepam 0.5 MG TAB PO PRN (13:18)
[2017-03-13] MEDS ORDERED: FUROSEMIDE 20 MG/2 ML VIAL IVP ONE (13:19)
[2017-03-13] MEDS ORDERED: PROTOCOL MAGNESIUM 1 DOSE IV PRN (13:20)
[2017-03-13] MEDS ORDERED: PROTOCOL POTASSIUM 1 DOSE MISC PRN (13:20)
--- NOTE | 2017-03-13 13:24 | HOSPPROG ---
Hospitalist Progress Note Assessment/Plan: New pt encounter 51 yo M w/ presumed widely metastatic prostate CA presents admitted with difficulty urinating and leg edema 1. Presumed metastatic prostate CA - Presumed on the basis of radiographic appearance and elevated PSA (1999). During last admission in December he was started on bicalutamide and discharged for further care in [place] per patient wishes. However, he was unable to establish care and has not received additional therapy. He also does not think he has been taking bicalutamide regularly. He is interested in pursuing any therapies available to him for prolonging his life. - Oncology consult pending 2. Severe bilateral hydronephrosis, difficulty urinating - As a result of above. Renal function remains normal although I suspect chronic retention is leading to significant edema notable on exam. - Cont Martin catheter to bypass obstruction for now 3. Bilateral lower extremity edema - I suspect this is related to urinary obstruction. Albumin at OSH 3.9 and lower extremity U/S without evidence of DVT. Unremarkable TTE in Septeber -Give Lasix IV x 1 -restart home Lasix tomorrow 4. Atrial fibrillation - Discharged on diltiazem after last admission, but not currently on his medication list. In NSR on admission. -Restart Diltiazem -restart low dose Aspirin, CHADS-VASC: 0 5. Osseous bone pain -pain mgmt Diet - Regular Code - Full Ppx - LMWH Dispo - Change to inpatient Subjective: still with leg swelling. Martin in, urine draining. No CP or SOB. Awaiting Onc consultation Objective: Vital Signs Temp Pulse Resp BP Pulse Ox 36.5 C 79 19 141/102 H 94 03/13/17 08:12 03/13/17 08:12 03/13/17 08:12 03/13/17 08:12 03/13/17 08:12 Laboratory Results 03/13/17 04:28 03/13/17 04:28 03/12/17 03/13/17 03/14/17 05:59 05:59 05:59 Intake Total 500 Output Total 600 Balance -100 - Physical Exam Constitutional: no apparent distress, appears nourished Eyes: PERRL Ears, Nose, Mouth, Throat: moist mucous membranes, hearing normal, ears appear normal Cardiovascular: regular rate and rhythym, edema Respiratory: no respiratory distress, no rales or rhonchi, clear to auscultation Gastrointestinal: normoactive bowel sounds, soft, non-tender abdomen Genitourinary: martni in urethra Skin: warm Neurologic: AAOx3 Psychiatric: interacting appropriately, not anxious, not encephalopathic ICD10 Worksheet Patient Problems: Problems Problem Status Onset Abdominal pain Acute Anemia Acute Bladder cancer metastasized to bone Acute Homeless Acute Low back pain radiating to both legs Acute Prostate cancer metastatic to bone Acute Prostate cancer metastatic to lung Acute
[2017-03-13] MEDS ORDERED: ASPIRIN 81 MG CHEWABLE TAB PO ONE (13:27)
--- NOTE | 2017-03-13 13:49 | PDMN ---
Medical Necessity Medical necessity: C/M review: est. > 2 MN LOS for eval and [place] presumed widely metastatic prostate cancer with acute and progressively - worsening difficulty urinating, severe bilateral hydronephrosis, bilateral lower extremity edema - both suspected related to presumed urinary obstruction due to metastatic prostatic obstruction, osseous bone pain, requiring Mcfarlane consult, planned Oncology consult, IV Lasix x 1, ongoing pain management, continue Mcfarlane catheter , workup, close monitoring, comorbid atrial fibrillation per 03/13/2017 Hospitalist progress note.
[2017-03-13] MEDS: DEXAMETHASONE 4 MG TAB PO SCH ×2 (14:09→20:49)
[2017-03-13] MEDS: POTASSIUM CL 20 MEQ TAB PO SCH (14:09)
[2017-03-13] MEDS: DILTIAZEM CD 120 MG CAP PO SCH (14:09)
[2017-03-13] MEDS: NICOTINE 14 MG/24 HR PATCH TD SCH (14:12)
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
[2017-03-13] MEDS ORDERED: FUROSEMIDE 40 MG TAB PO ONE (15:15)
[2017-03-13 15:31] LABS: ALANINE AMINOTRANSFERASE 43 IU/L (21-72); ALBUMIN 3.1 g/dL (3.5-5.0); ALKALINE PHOSPHATASE 125 IU/L (38-126); ASPARTATE AMINOTRANSFERASE 22 IU/L (17-59); BILIRUBIN,TOTAL 0.2 mg/dL (0.1-1.4); BILIRUBIN-UNCONJUGATED 0.2 mg/dL (0.0-1.1); CALCIUM 8.2 mg/dL (8.5-10.4); MAGNESIUM 2.1 mg/dL (1.6-2.3); POTASSIUM 4.1 mEq/L (3.5-5.2); TOTAL PROTEIN 4.9 g/dL (6.3-8.2)
--- NOTE | 2017-03-13 15:59 | ASMTCMCOM ---
CM Note CM Note Notes: Pt admitted for prostate ca. Pt dxd in December. Pt had been homeless in [place] and chose to go live with family in [place] and get treatment there. However, pt states that even though he was approved for SSI, his Medicaid ins. for [place] has not been approved yet and no Oncologist would take him. Therefore, he decided to come back to [place]. He drove here with his son. He states he has some money to help with a hotel. Lyudmila Rodriguez also indicated case mgmt. can help with a hotel. [facility] in [place] has cheap rooms and pt would like to get treatment with Dr Landrum at [facility] in [place] who saw him on his initial dx. For now, oncologist hoping to stabilize pt, start initial treatment and get his pain under control before he is ready for DC. C/M will continue to follow. Date Signed: 03/13/2017 03:59 PM Electronically Signed By:Roseanna Dior LCSW
[2017-03-13] MEDS: BICALUTAMIDE 50 MG TAB PO SCH (16:08)
[2017-03-14 04:32] LABS: % IMMATURE GRANULYOCYTES 1.7 % (0.0-1.1); ABSOLUTE IMMATURE GRANULOCYTES 0.17 10^3/uL (0.00-0.10); ABSOLUTE NRBC COUNT 0.02 10^3/uL (0-0.01); ADD DIFF? NO; ADD MORPH? YES; ADD SCAN? NO; ATYPICAL LYMPHOCYTE FLAG 0 (0-99); FRAGMENT RBC FLAG 20 (0-99); HEMATOCRIT 33.2 % (40.0-51.0); HEMOGLOBIN 11.4 g/dL (13.7-17.5); LEFT SHIFT FLG 10 (0-99); LIPEMIA HEMOLYSIS FLAG 90 (0-99); MEAN CELL HEMOGLOBIN CONCENTR. 34.3 g/dL (32.4-36.7); MEAN CELL VOLUME 93.3 fL (81.5-99.8); MEAN PLATELET VOLUME 9.2 fL (8.7-11.7); NRBC-AUTO% 0.2 % (0.0-0.2); PLATELET CLUMPS FLAG 0 (0-99); PLATELET COUNT 313 10^3/uL (150-400); RED BLOOD CELL COUNT 3.56 10^6/uL (4.40-6.38)
[2017-03-14 04:33] LABS: RED CELL DISTRIBUTION WIDTH 22.4 % (11.5-15.2)
[2017-03-14 04:46] LABS: ANION GAP 6 mEq/L (8-16); CALCIUM 8.1 mg/dL (8.5-10.4); CARBON DIOXIDE 29 mEq/l (22-31); CHLORIDE 104 mEq/L (97-110); CREATININE 0.9 mg/dL (0.7-1.3); GLOMERULAR FILTRATION RATE > 60; GLUCOSE 117 mg/dL (70-100); MAGNESIUM 2.1 mg/dL (1.6-2.3); POTASSIUM 4.2 mEq/L (3.5-5.2); SODIUM 139 mEq/L (134-144)
[2017-03-14 05:07] LABS: MACROCYTES 1+; MICROCYTES 2+; PLATELET ESTIMATE ADEQUATE (ADEQ)
[2017-03-14] MEDS: POTASSIUM CL 20 MEQ TAB PO SCH (09:31)
[2017-03-14] MEDS: PANTOPRAZOLE SODIUM 40 MG TAB PO SCH (09:31)
[2017-03-14] MEDS: DEXAMETHASONE 4 MG TAB PO SCH ×2 (09:31→21:57)
[2017-03-14] MEDS: ENOXAPARIN 40 MG/0.4 ML SYR SC SCH (09:31)
[2017-03-14] MEDS: FUROSEMIDE 20 MG TAB PO SCH (09:31)
[2017-03-14] MEDS: BICALUTAMIDE 50 MG TAB PO SCH (09:32)
[2017-03-14] MEDS: DILTIAZEM CD 120 MG CAP PO SCH (09:32)
[2017-03-14] MEDS: NICOTINE 14 MG/24 HR PATCH TD SCH (09:33)
--- NOTE | 2017-03-14 10:49 | HOSPPROG ---
Hospitalist Progress Note Assessment/Plan: 51 yo M w/ presumed widely metastatic prostate CA presents admitted with difficulty urinating and leg edema 1. Presumed metastatic prostate CA - Presumed on the basis of radiographic appearance and elevated PSA (1999). During last admission in December he was started on bicalutamide and discharged for further care in [place] per patient wishes. However, he was unable to establish care and has not received additional therapy. He also does not think he has been taking bicalutamide regularly. He is interested in pursuing any therapies available to him for prolonging his life. - care per Oncology 2. Prostate obstruction with Severe bilateral hydronephrosis, difficulty urinating - As a result of above. - Cont Martin catheter to bypass obstruction for now -Case d/w with Dr. Cruz from Urology. Will have the patient f/u with Dr. Cruz or his PA next week. This appointment needs to be set up 3. Bilateral lower extremity edema -lower extremity U/S without evidence of DVT. -Unremarkable TTE in -has responded appropriately to IV Lasix. Will start PO Lasix today. Give an extra evening dose today 4. Paroxysmal Atrial fibrillation (in SR)- Discharged on diltiazem after last admission, but not currently on his medication list. In NSR on admission. -Cont Diltiazem -restart low dose Aspirin, CHADS-VASC: 0 5. Osseous bone pain -pain mgmt Diet - Regular Code - Full Ppx - LMWH Dispo - continue inpatient, anticipate discharge possibly tomorrow Case d/w Dr. Soriano and Dr. Cruz Subjective: Pain is better controlled. still with martin in place, draining well. No CP or SOB. Leg swelling is improving Objective: Vital Signs Temp Pulse Resp BP Pulse Ox 36.6 C 67 18 132/88 H 95 03/14/17 09:16 03/14/17 09:32 03/14/17 09:16 03/14/17 09:32 03/14/17 09:16 Laboratory Results 03/14/17 04:25 03/14/17 04:25 03/13/17 03/14/17 03/15/17 05:59 05:59 05:59 Intake Total 500 1900 Output Total 600 6150 Balance -100 -4250 - Physical Exam Constitutional: no apparent distress, appears nourished, not in pain Eyes: PERRL, EOMI Ears, Nose, Mouth, Throat: moist mucous membranes, hearing normal Cardiovascular: regular rate and rhythym, edema (1+ LE) Respiratory: no respiratory distress, no rales or rhonchi, clear to auscultation Gastrointestinal: normoactive bowel sounds, soft, non-tender abdomen Skin: warm Neurologic: AAOx3 Psychiatric: interacting appropriately, not anxious, not encephalopathic ICD10 Worksheet Patient Problems: Problems Problem Status Onset Abdominal pain Acute Anemia Acute Bladder cancer metastasized to bone Acute Homeless Acute Low back pain radiating to both legs Acute Prostate cancer metastatic to bone Acute Prostate cancer metastatic to lung Acute
--- NOTE | 2017-03-14 11:58 | SOAPPROG ---
SOAP Progress Note Assessment/Plan: E&M for Prostate Cancer * Widely metastatic prostate cancer: Biclutamide restarted and will need to start LHRH agonist in about 1-2 weeks. Will also need bone health agent. Will see if we can get a bone scan while in the hospital. If he gets settled into a reliable place, he would also benefit from upfront docetaxel as well. After discharge he can either follow up with Dr. Soriano in [place] or with Dr. Landrum in [place]. * Urinary and fluid retention: probably due to large mass which should respond to systemic therapy. Agree with urology follow up. Subjective: Feeling much better. Pain under better control and swelling is improved. Objective: Vital Signs Temp Pulse Resp BP Pulse Ox 36.6 C 67 18 132/88 H 95 03/14/17 09:16 03/14/17 09:32 03/14/17 09:16 03/14/17 09:32 03/14/17 09:16 Laboratory Results 03/14/17 04:25 03/14/17 04:25 03/13/17 03/14/17 03/15/17 05:59 05:59 05:59 Intake Total 500 1900 Output Total 600 6150 Balance -100 -4250 Laboratory Tests 03/13/17 03/13/17 03/14/17 04:28 15:10 04:25 WBC 14.81 H 10.05 H Hgb 11.4 L 11.4 L Plt Count 263 313 D Alkaline Phosphatase 125 Prostate Specific Ag 1760.000 H Physical Exam - Physical Exam General Appearance: no apparent distress Respiratory: lungs clear Cardiac/Chest: regular rate, rhythm, edema (trace; much improved) Male Genitalia: other (martin catheter in; scrotal swelling is better) ICD10 Worksheet Patient Problems: Problems Problem Status Onset Low back pain radiating to both legs Acute Abdominal pain Acute Anemia Acute Homeless Acute Bladder cancer metastasized to bone Acute Prostate cancer metastatic to bone Acute Prostate cancer metastatic to lung Acute
[2017-03-14] MEDS ORDERED: FUROSEMIDE 20 MG TAB PO ONE (15:00)
[2017-03-14 19:13] LABS: POTASSIUM 3.9 mEq/L (3.5-5.2)
[2017-03-14] MEDS ORDERED: POTASSIUM CL 10 MEQ TAB PO ONE (21:11)
[2017-03-15] MEDS: ENOXAPARIN 40 MG/0.4 ML SYR SC SCH (07:39)
[2017-03-15] MEDS: NICOTINE 14 MG/24 HR PATCH TD SCH (07:40)
[2017-03-15] MEDS: POTASSIUM CL 20 MEQ TAB PO SCH (07:41)
[2017-03-15] MEDS: PANTOPRAZOLE SODIUM 40 MG TAB PO SCH (07:41)
[2017-03-15] MEDS: DEXAMETHASONE 4 MG TAB PO SCH (07:41)
[2017-03-15] MEDS: FUROSEMIDE 20 MG TAB PO SCH (07:43)
[2017-03-15 07:57] VITALS: BP 133/79; PULSE 72; RESP 19; TEMP 97.8; O2SAT 94
[2017-03-15] MEDS: DILTIAZEM CD 120 MG CAP PO SCH (08:00)
[2017-03-15] MEDS: BICALUTAMIDE 50 MG TAB PO SCH (08:02)
--- NOTE | 2017-03-15 11:05 | SOAPPROG ---
SOAP Progress Note Assessment/Plan: E&M for Prostate Cancer * Widely metastatic prostate cancer: Biclutamide restarted and will need to start LHRH agonist in about 1-2 weeks. Will also need bone health agent. Bone scan scheduled for Saturday. Will get our professor of social work involved to help with housing, etc. Once stable and settled, he would benefit from upfront docetaxel as well. After discharge he can either follow up with Dr. Soriano in [place] or with Dr. Landrum in [place]. * Urinary and fluid retention: probably due to large mass which should respond to systemic therapy. Agree with urology follow up. Subjective: Feeling much better and would like to go today. Objective: Vital Signs Temp Pulse Resp BP Pulse Ox 36.6 C 72 19 133/79 H 94 03/15/17 07:57 03/15/17 08:00 03/15/17 07:57 03/15/17 08:00 03/15/17 07:57 Laboratory Results 03/14/17 04:25 03/15/17 05:16 03/14/17 03/15/17 03/16/17 05:59 05:59 05:59 Intake Total 1900 750 Output Total 6150 8830 Balance -4250 -9450 Physical Exam - Physical Exam General Appearance: no apparent distress Respiratory: lungs clear Cardiac/Chest: regular rate, rhythm, edema (much better) Male Genitalia: other (martin catheter in place) ICD10 Worksheet Patient Problems: Problems Problem Status Onset Abdominal pain Acute Anemia Acute Bladder cancer metastasized to bone Acute Homeless Acute Low back pain radiating to both legs Acute Prostate cancer metastatic to bone Acute Prostate cancer metastatic to lung Acute
--- NOTE | 2017-03-15 11:22 | PDDCSUM ---
Discharge Summary Discharge Summary: 51 yo M w/ presumed widely metastatic prostate CA admitted with difficulty urinating and leg edema and generalized pain. He has been restarted on Biclutamide He will f/u with Dr. Landrum in 1-[address] and remains in place. He will f/u with Dr. Cruz next week for evaluation Leg edema is significantly better with Lasix and with insertion of Sanchez DDX: 1. Presumed metastatic prostate CA - Presumed on the basis of radiographic appearance and elevated PSA (1999). During last admission in December he was started on bicalutamide and discharged for further care in [place] per patient wishes. However, he was unable to establish care and has not received additional therapy. He also does not think he has been taking bicalutamide regularly. He is interested in pursuing any therapies available to him for prolonging his life. - No back on Bicalutamide 2. Prostate obstruction with Severe bilateral hydronephrosis, difficulty urinating - As a result of above. - Cont Sanchez catheter to bypass obstruction for now -Case d/w with Dr. Cruz from Urology. Will have the patient f/u with Dr. Cruz or his PA next week. This appointment needs to be set up. The pt will call for appt. 3. Bilateral lower extremity edema -lower extremity U/S without evidence of DVT. -Unremarkable TTE in Septeber -has responded appropriately to IV Lasix. Now on PO Lasix 4. Paroxysmal Atrial fibrillation (in SR)- Discharged on diltiazem after last admission, but not currently on his medication list. In NSR on admission. -Cont Diltiazem -restart low dose Aspirin, CHADS-VASC: 0 5. Osseous bone pain -pain mgmt, pain meds provided Exam: VSS NAD AAOX3 RRR CTA B S/NT/ND SANCHEZ IN PLACE TRACE LE EDEMA MEDS: SEE MED REC TOTAL TIME SPENT ON DISCHARGE IS 35 MINUTES
--- NOTE | 2017-03-15 14:43 | ASDISCHSUM ---
Discharge Information Plan Status:Home with No Needs Medically Cleared to Leave: Discharge Date:03/15/2017 12:21 PM D/C Disposition:Home, Routine, Self-Care ADT D/C Disposition:Home, Routine, Self-Care Projected Discharge Date:03/15/2017 12:21 PM Transportation at D/C: Discharge Delay Reason: Follow-Up Date:03/15/2017 12:21 PM Discharge Slot: Final Diagnosis: Placement Information Patient Contact Information Contact Name:RAISA Relationship:Jamie Address: Home Phone: City: [facility] Phone: [facility]/Zip Code: Email: Financial Information Financial Class: Primary Plan Desc:[employer] [place] IP Primary Plan Number:[id number] Secondary Plan Desc: Secondary Plan Number: Assessment Information [facility] CM Progress Note CM Note CM Note Notes: Pt admitted for prostate ca. Pt dxd in December. Pt had been homeless in [place] and chose to go live with family in [place] and get treatment there. However, pt states that even though he was approved for [facility], his Medicaid ins. for [place] has not been approved yet and no Oncologist would take him. Therefore, he decided to come back to [place]. He drove here with his son. He states he has some money to help with a hotel. yLudmila Rodriguez also indicated case mgmt. can help with a hotel. [facility] in [place] has cheap rooms and pt would like to get treatment with Dr Landrum at [facility] in [place] who saw him on his initial dx. For now, oncologist hoping to stabilize pt, start initial treatment and get his pain under control before he is ready for DC. C/M will continue to follow. Date Signed: 03/13/2017 03:59 PM Electronically Signed By:Roseanna Dior LCSW Case Management Discharge Plan Note Case Management Discharge Discharge Order Complete? Answers: Yes Patient to Obtain Answers: Independently Medications Discharge Comments Notes: Today Pt. w/ a d/c order. Pt. left before RN could remove his IV. RN tried to reach him by phone through his brother with no success as of the time of the writing of this note. CM had no time to visit with Pt. before he left abruptly. CM does not know if Pt. was going to stay at the [facility] in [place]. Date Signed: 03/15/2017 02:42 PM Electronically Signed By:Gwen Gary LCSW Intervention Information
== END 2017-03-15 12:21 | disposition home or self-care (01) | DRG 723 ==
LOC: F1N 03-13 00:29 → OBSVTOIN 03-13 13:36
PROVIDERS: ADMIT Student in an Organized Health Care Education/Training Program; ATTEND Student in an Organized Health Care Education/Training Program
DX: C61 Malignant neoplasm of prostate (principal); N13.30 Unspecified hydronephrosis; I48.0 Paroxysmal atrial fibrillation; M89.8X9 Other specified disorders of bone, unspecified site
CPT/HCPCS: J1650; J1940